=== PATIENT | female | born 1990 | race Caucasian/White ===

== ENCOUNTER → 2017-11-07 | Outpatient (CLI) | payer BC ==
--- NOTE | 2017-11-07 10:52 | Diagnostic Imaging Report ---
PROCEDURE:US THYROID COMPARISON:None. INDICATIONS:Goiter TECHNIQUE:Jeff scale color Doppler ultrasound. FINDINGS: Right lobe: 4.4 x 1.1 x 1.4 cm. Left lobe: 2.6 x 0.8 x 0.7 cm. Isthmus thickness: 0.4 cm. Normal parenchymal echogenicity. No nodularity. Normal vascularity. CONCLUSION: There are no thyroid nodules. There is relative asymmetry between the right and left lobes (right larger) with underlying conspicuous abnormality. This is likely physiologic. Dictated by: Artur Macedo M.D. on 11/07/2017 at 11:00 Electronically approved by: Artur Macedo M.D. on 11/07/2017 at 11:00
== END ==
LOC: US 10:03
PROVIDERS: ATTEND Internal Medicine Endocrinology, Diabetes & Metabolism
DX: E04.9 Nontoxic goiter, unspecified (principal)
CPT/HCPCS: 76536